=== PATIENT | female | born 1995 | race Caucasian/White ===

== ENCOUNTER 2016-09-27 20:19 | Emergency (ER) | payer SELFPAY ==
[2016-09-27 20:52] VITALS: BP 146/85
--- NOTE | 2016-09-27 20:55 | ER Document Report ---
ED Medical Screen (RME) - General Stated Complaint: VOMITING Notes: 21 yo female c/o metallic taste in mouth, epigastric pain, burning intermittantly x 1 month. vomited after taking OTC antacid. pain seems worse after eating spicy foods. no fevers pt vomited at work today and needs a work note - Related Data Allergies/Adverse Reactions: No Known Allergies Allergy (Unverified 09/27/16 20:52)
== END 2016-09-28 00:30 | disposition left against medical advice (07) ==
LOC: ER 20:19
DX: R11.10 Vomiting, unspecified (principal); R10.13 Epigastric pain
CPT/HCPCS: 99281

== ENCOUNTER 2016-10-03 20:45 | Emergency (ER) | payer SELFPAY | END 2016-10-04 01:00 | disposition left against medical advice (07) | LOC: ER 20:45 | DX: Z53.21 Procedure and treatment not carried out due to patient leaving prior to being seen by health care provider (principal) ==

== ENCOUNTER 2016-11-14 21:20 | Emergency (ER) | payer SELFPAY ==
[2016-11-15 00:23] VITALS: BP 127/88
== END 2016-11-15 02:48 | disposition left against medical advice (07) ==
LOC: ER 21:20
DX: Z53.9 Procedure and treatment not carried out, unspecified reason (principal); T78.40XA Allergy, unspecified, initial encounter